=== PATIENT | male | born 1995 | race Caucasian/White ===

== ENCOUNTER 2022-06-14 02:50 | Emergency (ER) | payer OTHER ==
[~2022-06-14] VITALS: Ht 205.7 cm; Wt 204.1 kg
[2022-06-14 03:15] VITALS: BP_SYST 165
[2022-06-14] MEDS ORDERED: KETOROLAC TROMETHAMINE 30 MG VIAL IVP ONE (03:45)
[2022-06-14] MEDS ORDERED: NACL 0.9% 1,000 ML IV ONE (03:45)
[2022-06-14 04:09] LABS: BASOPHILS # (AUTO) 0.1 K/uL (0.0-0.2); BASOPHILS % (AUTO) 0.6 % (0.0-2.0); EOSINOPHILS # (AUTO) 0.2 K/uL (0.0-0.4); EOSINOPHILS % (AUTO) 2.1 % (0.0-4.0); HEMATOCRIT 43.5 % (36-54); HEMOGLOBIN 14.7 g/dL (14.0-18.0); LYMPHOCYTES # (AUTO) 2.7 K/uL (1.0-5.5); LYMPHOCYTES % (AUTO) 31.1 % (20.5-51.5); MEAN CORPUSCULAR HEMOGLOBIN 30 pg (27-31); MEAN CORPUSCULAR HGB CONC 34 % (32-36); MEAN CORPUSCULAR VOLUME 87 fL (79.0-98.0); MONOCYTES # (AUTO) 0.9 K/uL (0.0-1.0); MONOCYTES % (AUTO) 9.7 % (1.7-9.3); NEUTROPHILS % (AUTO) 56.5 % (40.0-70.0); PLATELET COUNT (AUTO) 254 K/uL (130-430); RED CELL DISTRIBUTION WIDTH 13.9 % (9.0-15.0); WHITE BLOOD COUNT (AUTO) 8.8 K/uL (4.8-10.8)
[2022-06-14 04:20] LABS: CALCIUM 8.5 mg/dL (8.4-11.0); CREATININE 0.81 mg/dL (0.55-1.30)
[2022-06-14 04:25] LABS: ALBUMIN 3.2 g/dL (3.4-4.8); TOTAL BILIRUBIN 0.3 mg/dL (0.0-1.0)
[2022-06-14 04:55] LABS: BILIRUBIN,URINE NEGATIVE (NEGATIVE); BLOOD, URINE 2+ (NEGATIVE); COLOR,URINE YELLOW (YELLOW); GLUCOSE,URINE NEGATIVE (NEGATIVE); KETONES,URINE NEGATIVE (NEGATIVE); LEUKOCYTE ESTERASE ,URINE NEGATIVE (NEGATIVE); NITRITE, URINE NEGATIVE (NEGATIVE); PROTEIN URINE NEGATIVE (NEGATIVE); UROBILINOGEN,URINE 0.2 (0.2-1.0)
[2022-06-14 04:56] LABS: CLARITY/URINE HAZY (CLEAR)
[2022-06-14 05:11] LABS: BACTERIA,URINE None Seen /HPF (None Seen); WBC,URINE 0-3 /HPF (0-3)
[2022-06-14] MEDS ORDERED: TRAM50TA2 PO (06:30)
[2022-06-14] MEDS ORDERED: IBUP-1971 PO (06:30)
[2022-06-14 06:47] VITALS: BP_SYST 129
== END 2022-06-14 06:50 | disposition home or self-care (01) ==
LOC: SED 02:50
DX: N13.2 Hydronephrosis with renal and ureteral calculous obstruction (principal); M54.50 Low back pain, unspecified; R11.0 Nausea; Z79.899 Other long term (current) drug therapy
CPT/HCPCS: 99285; 74176; 96374; 96361; 80053; 81000; 83690; 85025; 36415; 76376; J1885; J7030